=== PATIENT | male | born 1960 | race Caucasian/White ===

== ENCOUNTER 2022-12-12 06:58 | Day surgery (SDC) | payer OTHER ==
[~2022-12-12] VITALS: Ht 177.8 cm; Wt 97.7 kg
[~2022-12-12 06:58] MED LIST: ALBU90AE PO; ASPI-1444 PO; DOCU-350 PO; FLUT16SP NASAL; LISI-892 PO; LORA10TA7 PO; METH-386 PO; METO25 PO; MONT-35 PO; NYST5ORA7 PO; OMEP20 PO; PRED-729 PO; ROSU10TA72 PO; SYMB8060 IH; TRAZ150T80 PO
[2022-12-12] MEDS ORDERED: ALBUTEROL SULFATE 2.5 MG/0.5 ML NEB SOLUTION NEB ONE (06:59)
[2022-12-12] MEDS ORDERED: LIDOCAINE 4% 50 ML SOLUTION TP ONE (06:59)
[2022-12-12] MEDS ORDERED: LIDOCAINE 2% 11 ML JELLY TP ONE (06:59)
[2022-12-12] MEDS ORDERED: BENZOCAINE 20% 50 MCG/SPRAY 57 GM TP ONE (06:59)
[2022-12-12 07:30] LABS: COVID AG,FIA SOURCE NASAL SWAB
[2022-12-12] MEDS ORDERED: IPRA4AER IH (07:40)
[2022-12-12] MEDS ORDERED: IPRA3AMP24 NEB (07:41)
[2022-12-12] MEDS ORDERED: FLUT1BLS8 IH (07:42)
[2022-12-12] MEDS ORDERED: METO25XL PO (07:42)
[2022-12-12] MEDS ORDERED: MIDAZOLAM HCL 2 MG/2 ML VIAL ONE (08:10)
[2022-12-12] MEDS ORDERED: FentaNYL CITRATE PF 100 MCG/2 ML VIAL ONE (08:10)
[2022-12-12] MEDS ORDERED: SODIUM CHLORIDE 0.9% 1,000 ML ONE (08:10)
[2022-12-12] MEDS ORDERED: SODIUM CHLORIDE 0.9% 1,000 ML IV ONE (08:30)
[2022-12-12] MEDS ORDERED: MethylPREDNISolone SOD SUCC 125 MG/2 ML VIAL ONE (09:27)
[2022-12-12] MEDS ORDERED: MethylPREDNISolone SOD SUCC 125 MG/2 ML VIAL IVP ONE (10:00)
== END 2022-12-12 12:10 | disposition home or self-care (01) ==
LOC: SURGERY 06:58
PROVIDERS: ATTEND Internal Medicine Critical Care Medicine
DX: R05.3 Chronic cough (principal); R91.1 Solitary pulmonary nodule; J98.09 Other diseases of bronchus, not elsewhere classified; I10 Essential (primary) hypertension; M19.90 Unspecified osteoarthritis, unspecified site; J98.8 Other specified respiratory disorders; G47.30 Sleep apnea, unspecified; Z20.822 Contact with and (suspected) exposure to COVID-19; Z91.041 Radiographic dye allergy status; Z88.6 Allergy status to analgesic agent; Z90.49 Acquired absence of other specified parts of digestive tract; Z87.891 Personal history of nicotine dependence; Z98.890 Other specified postprocedural states
CPT/HCPCS: 31623; 88112; 87101; 87220; 87070; 31624; 94640; 71045; 87015; 87426; 87206; J3010; J2250; J2930; Q9967; J7030; C9803; J7613; Z7610

== ENCOUNTER 2024-08-05 06:44 | Day surgery (SDC) | payer OTHER ==
[~2024-08-05] VITALS: Ht 177.8 cm; Wt 97.7 kg
[~2024-08-05 06:44] MED LIST changes: -ASPI-1444 PO; -DOCU-350 PO; -FLUT16SP NASAL; +FLUT1BLS18 IH; +IPRA3AMP24 NEB; +IPRA4AER IH; -LORA10TA7 PO; -METO25 PO; +METO25XL PO; -OMEP20 PO; -PRED-729 PO; -ROSU10TA72 PO; -SYMB8060 IH
[2024-08-05] MEDS ORDERED: SODIUM CHLORIDE 0.9% 1,000 ML ONE (06:46)
[2024-08-05] MEDS ORDERED: MIDAZOLAM HCL 2 MG/2 ML VIAL ONE (07:20)
[2024-08-05] MEDS ORDERED: FentaNYL CITRATE PF 100 MCG/2 ML VIAL ONE (07:20)
[2024-08-05] MEDS: SODIUM CHLORIDE 0.9% 1,000 ML IV ONE (08:48)
[2024-08-05] MEDS: MIDAZOLAM HCL 2 MG/2 ML VIAL IVP ONE (09:55)
[2024-08-05] MEDS: FentaNYL CITRATE PF 100 MCG/2 ML VIAL IVP ONE (09:57)
[2024-08-05 10:06] VITALS: PULSE 98; RESP 22; O2SAT 93
[2024-08-05] MEDS ORDERED: MethylPREDNISolone SOD SUCC 125 MG/2 ML VIAL ONE (10:14)
[2024-08-05] MEDS ORDERED: MethylPREDNISolone SOD SUCC 125 MG/2 ML VIAL IVP ONE (10:30)
[2024-08-05] MEDS: MethylPREDNISolone SOD SUCC 125 MG/2 ML VIAL IVP ONE (11:01)
== END 2024-08-05 12:45 | disposition home or self-care (01) ==
LOC: SURGERY 06:44
PROVIDERS: ATTEND Internal Medicine Critical Care Medicine
DX: R05.3 Chronic cough (principal); R49.0 Dysphonia; R04.2 Hemoptysis; R91.8 Other nonspecific abnormal finding of lung field; J38.4 Edema of larynx; B37.0 Candidal stomatitis; I10 Essential (primary) hypertension; J45.909 Unspecified asthma, uncomplicated; G47.33 Obstructive sleep apnea (adult) (pediatric); M19.90 Unspecified osteoarthritis, unspecified site; F12.90 Cannabis use, unspecified, uncomplicated; Z90.49 Acquired absence of other specified parts of digestive tract; Z98.818 Other dental procedure status; Z98.890 Other specified postprocedural states; Z88.5 Allergy status to narcotic agent; Z91.041 Radiographic dye allergy status
CPT/HCPCS: 31623; 31624; 71045; 87015; 87070; 87101; 87206; 87220; 88108; 94640; J2250; J2919; J3010; J7030